=== PATIENT | female | born 1950 | race Caucasian/White ===

== ENCOUNTER 2024-05-27 18:56 | Observation (INO) ==
[2024-05-27 21:01] LABS: ABS Lymphocytes 0.4 10^3/uL (1.0-4.8); ABS Monocytes 0.4 10^3/uL (0.0-0.9); ABS Neutrophils 9.9 10^3/uL (1.5-7.6); Hemoglobin 15.8 g/dL (11.5-14.3); Lymphocyte % 3.3 %; Mean Corpuscular Hemoglobin 31.5 pg (27-33); Mean Corpuscular Hgb Conc 32.9 g/dL (31-36); Mean Corpuscular Volume 95.8 fL (80-97); Mean Platelet Volume 8.2 fL (7.5-11.2); Platelet Count 269 10^3/uL (150-450); Red Blood Count 5.02 10^6/uL (3.63-4.92); Red Cell Distribution Width 16.3 % (12-17); White Blood Count 10.7 10^3/uL (3.8-11.8)
[2024-05-27] MEDS: Lidocaine 2% JELLY 6 ML Topical TOPICAL ONE (21:21)
[2024-05-27 21:39] LABS: Albumin 3.8 g/dL (3.2-5.2); Albumin/Globulin Ratio 1.6 (1-3); C Reactive Protein 13.86 mg/L (<8.01); Calcium 9.1 mg/dL (8.6-10.3); Creatinine, Serum 0.83 mg/dL (0.51-0.95); Globulin 2.4 g/dL (2-4); Potassium 4.5 mmol/L (3.5-5.0); Total Bilirubin 0.5 mg/dL (0.2-1.0); Total Protein 6.2 g/dL (6.4-8.9)
[2024-05-27 22:14] LABS: Urine Appearance Clear; Urine Bilirubin Negative (Negative); Urine Blood Negative (Negative); Urine Color Light-Yellow; Urine Glucose Negative (Negative); Urine Ketones Negative (Negative); Urine Nitrite Negative (Negative); Urine Protein Negative (Negative); Urine Specific Gravity 1.017 (1.002-1.030); Urine Urobilinogen Negative (Negative)
[2024-05-27] MEDS: Lactated Ringers 1000 ml BAG 1,000 ML IV ONE (22:19)
[2024-05-27 22:31] LABS: Urine Bacteria Absent /HPF (Absent); Urine Red Blood Cell Trace(0-2/hpf) /HPF (0-Trace); Urine Renal Epithelial Cells Present /HPF (Absent); Urine Squamous Epithelial Cell Present /HPF (Absent); Urine White Blood Cell Trace(0-5/hpf) /HPF (0-Trace)
[2024-05-27 22:37] LABS: High Sensitivity Troponin 1 Hr 16 pg/mL (<15)
[2024-05-28] MEDS ORDERED: Sulfur Hexaflouride MICROSPHR 25 MG VIAL IV PRN (06:16)
[2024-05-28] MEDS: Enoxaparin 40 MG/0.4 ML SYR SUBCUT SCH (06:33)
[2024-05-28 17:25] LABS: Body Fluid Total Nucleated 262 /mcL
[2024-05-28 17:26] LABS: Body Fluid Appearance Cloudy; Body Fluid Color Yellow; Body Fluid Source Pleural Fluid
[2024-05-28 18:34] LABS: Body Fluid Mono 11 %; Body Fluid Other Cells 321; Body Fluid Total Cells Counted 200
[2024-05-29 06:22] LABS: Calcium 8.2 mg/dL (8.6-10.3); Creatinine, Serum 0.71 mg/dL (0.51-0.95); Potassium 4.3 mmol/L (3.5-5.0); eGFR CKD-EPI 88.1 (>60)
[2024-05-29] MEDS: Lidocaine PATCH 5% PATCH TRANSDERM SCH (12:49)
[2024-05-29 17:14] VITALS: BP 141/89
[2024-05-30 13:46] LABS: Lactate Dehydrogenase, BF 223 U/L
[2024-05-30 15:13] LABS: Albumin, BF 2.4 g/dL; Fluid Type, Albumin PLEURAL; Fluid Type, Protein, Total PLEURAL; Glucose, BF 154 mg/dL; Total Protein, BF 3.4 g/dL
== END 2024-05-29 19:08 | disposition home or self-care (01) ==
LOC: EDHOLD 18:56 → ED 18:56 → SUATTDRO 05-28 03:10 → MED 05-28 13:14
PROVIDERS: ADMIT Student in an Organized Health Care Education/Training Program; ATTEND Student in an Organized Health Care Education/Training Program

== ENCOUNTER 2024-06-02 14:25 | Observation (INO) ==
[2024-06-02 15:19] LABS: Hematocrit 45.7 % (35-45); Hemoglobin 15.3 g/dL (11.5-14.3); Mean Corpuscular Hemoglobin 31.5 pg (27-33); Mean Corpuscular Hgb Conc 33.5 g/dL (31-36); Mean Corpuscular Volume 93.9 fL (80-97); Mean Platelet Volume 8.1 fL (7.5-11.2); Platelet Count 200 10^3/uL (150-450); Red Blood Count 4.87 10^6/uL (3.63-4.92); Red Cell Distribution Width 16.5 % (12-17); White Blood Count 14.3 10^3/uL (3.8-11.8)
[2024-06-02 15:49] LABS: INR 1.06 (0.85-1.14)
[2024-06-02 15:55] LABS: ABS Lymphocytes 0.3 10^3/uL (1.0-4.8); ABS Monocytes 0.5 10^3/uL (0.0-0.9); ABS Neutrophils 13.4 10^3/uL (1.5-7.6); ABS Nucleated RBC 0.01 10^3/ul; Eosinophil % 0.1 %; Lymphocyte % 2.1 %; Nucleated Red Blood Cells % 0.1 %/100WBC (0.0-0.8)
[2024-06-02 16:20] LABS: Albumin 3.2 g/dL (3.2-5.2); Albumin/Globulin Ratio 1.4 (1-3); Calcium 8.6 mg/dL (8.6-10.3); Creatinine, Serum 0.68 mg/dL (0.51-0.95); Globulin 2.3 g/dL (2-4); Potassium 4.5 mmol/L (3.5-5.0); Total Bilirubin 0.7 mg/dL (0.2-1.0); Total Protein 5.5 g/dL (6.4-8.9); eGFR CKD-EPI 90.2 (>60)
[2024-06-02 16:46] LABS: High Sensitivity Troponin 1 Hr 7 pg/mL (<15)
[2024-06-03 06:49] LABS: INR 1.01 (0.85-1.14)
[2024-06-03 06:50] LABS: ABS Lymphocytes 0.6 10^3/uL (1.0-4.8); ABS Monocytes 0.9 10^3/uL (0.0-0.9); ABS Neutrophils 10.9 10^3/uL (1.5-7.6); Eosinophil % 0.1 %; Hematocrit 43.8 % (35-45); Hemoglobin 14.8 g/dL (11.5-14.3); Lymphocyte % 4.7 %; Mean Corpuscular Hemoglobin 31.8 pg (27-33); Mean Corpuscular Hgb Conc 33.8 g/dL (31-36); Mean Corpuscular Volume 94.2 fL (80-97); Mean Platelet Volume 8.1 fL (7.5-11.2); Platelet Count 184 10^3/uL (150-450); Red Blood Count 4.65 10^6/uL (3.63-4.92); Red Cell Distribution Width 16.2 % (12-17); White Blood Count 12.4 10^3/uL (3.8-11.8)
[2024-06-03 06:59] LABS: Calcium 8.5 mg/dL (8.6-10.3); Creatinine, Serum 0.77 mg/dL (0.51-0.95); Magnesium 1.4 mg/dL (1.9-2.7); Potassium 4.6 mmol/L (3.5-5.0); eGFR CKD-EPI 79.9 (>60)
[2024-06-03] MEDS: Magnesium Sulf 4 GM/100 ML IV 4,000 MG/100 ML BAG IVPB ONE (11:49)
[2024-06-04] MEDS ORDERED: fentaNYL 100 mcg/2 ml 50 MCG/ML VIAL IV SLOW PU ONE (12:22)
[2024-06-04] MEDS ORDERED: Naloxone 0.4 mg VIAL 0.4 mg/ml 1 ml VIAL IV PUSH PRN (12:22)
[2024-06-04] MEDS ORDERED: Midazolam 10 mg/10 ml VIAL 1 mg/ml 10 ml VIAL (10 mg) IV SLOW PU ONE (12:22)
[2024-06-04] MEDS ORDERED: Flumazenil 0.5 mg/5 ml 0.1 MG/ML 5 ml VIAL IV PRN (12:22)
[2024-06-04] MEDS ORDERED: fentaNYL 100 mcg/2 ml 50 MCG/ML VIAL ONE (13:08)
[2024-06-04] MEDS: Midazolam 2 mg/2 ml VIAL 1 mg/ml 2 ml VIAL (2 mg) ONE (16:23)
[2024-06-04] MEDS: fentaNYL 100 mcg/2 ml 50 MCG/ML VIAL ONE (16:23)
[2024-06-04] MEDS: ceFAZolin 1 GM ADVAN 1 GM ADDV.VIAL IVPB ONE (16:23)
[2024-06-04 16:30] VITALS: BP 104/57
== END 2024-06-04 17:07 | disposition home health service (06) ==
LOC: ED 14:25 → EDHOLD 14:25 → MED 23:28
PROVIDERS: ADMIT Internal Medicine; ATTEND Internal Medicine

== ENCOUNTER 2024-06-20 11:31 | Inpatient (IN) ==
[2024-06-20 11:54] LABS: Hematocrit 42.5 % (35-45); Hemoglobin 14.1 g/dL (11.5-14.3); Mean Corpuscular Hemoglobin 31.1 pg (27-33); Mean Corpuscular Hgb Conc 33.2 g/dL (31-36); Mean Corpuscular Volume 93.5 fL (80-97); Mean Platelet Volume 7.3 fL (7.5-11.2); Platelet Count 285 10^3/uL (150-450); Red Blood Count 4.54 10^6/uL (3.63-4.92); Red Cell Distribution Width 15.7 % (12-17); White Blood Count 14.5 10^3/uL (3.8-11.8)
[2024-06-20 11:59] LABS: INR 1.05 (0.85-1.14)
[2024-06-20 12:34] LABS: Albumin/Globulin Ratio 1.4 (1-3); Calcium 8.3 mg/dL (8.6-10.3); Creatinine, Serum 0.57 mg/dL (0.51-0.95); Globulin 2.2 g/dL (2-4); Potassium 4.8 mmol/L (3.5-5.0); Total Bilirubin 0.5 mg/dL (0.2-1.0); Total Protein 5.2 g/dL (6.4-8.9); eGFR CKD-EPI 94.1 (>60)
[2024-06-20 12:41] LABS: ABS Basophils 0.1 10^3/uL (0.0-0.1); ABS Lymphocytes 0.2 10^3/uL (1.0-4.8); ABS Monocytes 0.3 10^3/uL (0.0-0.9); ABS Neutrophils 13.9 10^3/uL (1.5-7.6); Lymphocyte % 1.3 %
[2024-06-20 13:16] LABS: Venous Bicarbonate HCO3 28.4 mmol/L (24-28)
[2024-06-20 13:18] LABS: High Sensitivity Troponin 1 Hr 14 pg/mL (<15)
[2024-06-20] MEDS: Iohexol 350 (CONTRAST) 500 ML MDV IV ONE (13:28)
[2024-06-20 13:29] LABS: C Reactive Protein 26.03 mg/L (<8.01)
[2024-06-20] MEDS: Albuterol/Ipratropium NEB.SOL (2.5/0.5 MG) 3 ML NEB.SOLN INH ONE (13:31)
[2024-06-20] MEDS: Cefepime 2 GM in Dextrose 2 GM/50 ML BAG IV ONE (14:12)
[2024-06-20] MEDS: DOXYcycline 100 MG in NS 0.9% 250 ml 250 ML IVPB ONE (14:52)
[2024-06-20] MEDS: Heparin 5000 UNITS/ML 1 mL VIAL IV SCH (15:14)
[2024-06-20] MEDS: Heparin DRIP 25,000 UNITS BAG 25,000 UNITS/250 ML BAG IV SCH (15:15)
[2024-06-20 16:04] LABS: Creatinine, Serum 0.62 mg/dL (0.51-0.95); eGFR CKD-EPI 92.2 (>60)
[2024-06-20] MEDS: cefTRIAXone 1 gm/50 mL D5W 1 GM/50 ML BAG IV SCH (18:01)
[2024-06-20] MEDS: Azithromycin 500 mg/250 ml NS 500 MG/250 ML BAG IVPB SCH (19:12)
[2024-06-21] MEDS ORDERED: Morphine 2 MG/ML SYRINGE IV PRN (00:50)
[2024-06-21 04:33] LABS: Urine Appearance Clear; Urine Bilirubin Negative (Negative); Urine Blood Negative (Negative); Urine Color Light-Yellow; Urine Glucose Negative (Negative); Urine Ketones Negative (Negative); Urine Nitrite Negative (Negative); Urine Protein Negative (Negative); Urine Specific Gravity 1.037 (1.002-1.030); Urine Urobilinogen Negative (Negative); Urine pH 6.5 (5.0-8.0)
[2024-06-21 06:00] LABS: Hematocrit 39.4 % (35-45); Hemoglobin 13.3 g/dL (11.5-14.3); Mean Corpuscular Hgb Conc 33.8 g/dL (31-36); Mean Corpuscular Volume 94.6 fL (80-97); Mean Platelet Volume 7.7 fL (7.5-11.2); Platelet Count 275 10^3/uL (150-450); Red Blood Count 4.17 10^6/uL (3.63-4.92); Red Cell Distribution Width 15.7 % (12-17); White Blood Count 13.3 10^3/uL (3.8-11.8)
[2024-06-21 07:07] LABS: Creatinine, Serum 0.6 mg/dL (0.51-0.95); Magnesium 1.3 mg/dL (1.9-2.7); Potassium 4.1 mmol/L (3.5-5.0)
[2024-06-21 08:06] LABS: ABS Lymphocytes 0.3 10^3/uL (1.0-4.8); Lymphocyte % 2.5 %
[2024-06-21] MEDS: Magnesium Sulfate 2 gm BAG 2 GM/50 ML BAG IVPB SCH (09:31)
[2024-06-21] MEDS: Timolol 0.5% OPTH.SOL BTL BOTH EYES SCH (09:33)
[2024-06-21] MEDS ORDERED: Sulfur Hexaflouride MICROSPHR 25 MG VIAL IV PRN (10:08)
[2024-06-21] MEDS ORDERED: Metoprolol Tartrate 5 mg VIAL 5 ml VIAL (1 mg/ml) IV PRN (10:08)
[2024-06-21] MEDS: Metoprolol Tartrate 5 mg VIAL 5 ml VIAL (1 mg/ml) IV PRN (10:55)
[2024-06-21] MEDS ORDERED: PTO:Timolol 0.5% OPTH.SOL BTL BOTH EYES SCH (19:52)
[2024-06-21] MEDS: PTO:Timolol 0.5% OPTH.SOL BTL BOTH EYES SCH (22:57)
[2024-06-22 05:08] LABS: Hematocrit 37.8 % (35-45); Hemoglobin 12.8 g/dL (11.5-14.3); Mean Corpuscular Hemoglobin 31.9 pg (27-33); Mean Corpuscular Hgb Conc 33.9 g/dL (31-36); Mean Corpuscular Volume 94.1 fL (80-97); Mean Platelet Volume 7.8 fL (7.5-11.2); Platelet Count 270 10^3/uL (150-450); Red Blood Count 4.01 10^6/uL (3.63-4.92); Red Cell Distribution Width 15.5 % (12-17); White Blood Count 13.9 10^3/uL (3.8-11.8)
[2024-06-22 06:02] LABS: Calcium 7.7 mg/dL (8.6-10.3); Creatinine, Serum 0.58 mg/dL (0.51-0.95); Magnesium 1.7 mg/dL (1.9-2.7); Potassium 4.3 mmol/L (3.5-5.0); eGFR CKD-EPI 93.7 (>60)
[2024-06-22 06:59] LABS: ABS Basophils 0.1 10^3/uL (0.0-0.1); ABS Lymphocytes 0.2 10^3/uL (1.0-4.8); ABS Monocytes 0.8 10^3/uL (0.0-0.9); ABS Neutrophils 12.7 10^3/uL (1.5-7.6); Lymphocyte % 1.7 %
[2024-06-22] MEDS: Magnesium Sulfate 2 gm BAG 2 GM/50 ML BAG IVPB ONE (09:32)
[2024-06-22] MEDS: Al Hydrox/Mg Hydrox/Simet LIQ 30 ML UDC PO ONE (16:05)
[2024-06-23 06:48] LABS: Hematocrit 39.4 % (35-45); Hemoglobin 13.3 g/dL (11.5-14.3); Mean Corpuscular Hemoglobin 31.7 pg (27-33); Mean Corpuscular Hgb Conc 33.7 g/dL (31-36); Mean Corpuscular Volume 94.1 fL (80-97); Mean Platelet Volume 7.8 fL (7.5-11.2); Platelet Count 287 10^3/uL (150-450); Red Blood Count 4.19 10^6/uL (3.63-4.92); Red Cell Distribution Width 15.5 % (12-17); White Blood Count 14.4 10^3/uL (3.8-11.8)
[2024-06-23 07:13] LABS: ABS Basophils 0.1 10^3/uL (0.0-0.1); ABS Lymphocytes 0.3 10^3/uL (1.0-4.8); ABS Monocytes 0.8 10^3/uL (0.0-0.9); ABS Neutrophils 13.2 10^3/uL (1.5-7.6); Lymphocyte % 2.3 %
[2024-06-23 07:33] LABS: Creatinine, Serum 0.57 mg/dL (0.51-0.95); Potassium 4.7 mmol/L (3.5-5.0); eGFR CKD-EPI 94.1 (>60)
[2024-06-23] MEDS: Sulfamethox/Trimethoprim DS TAB 800/160 mg PO SCH (09:50)
[2024-06-23] MEDS: Morphine ORAL CONCENTRATE 5 MG/0.25 ML ORAL.SYRIN PO PRN (21:32)
[2024-06-24] MEDS: Albuterol/Ipratropium NEB.SOL (2.5/0.5 MG) 3 ML NEB.SOLN INH PRN (10:02)
[2024-06-24] MEDS: Furosemide 20 mg/2 ml IV VIAL IV SLOW PU ONE (12:48)
[2024-06-25 09:06] LABS: Hemoglobin 12.9 g/dL (11.5-14.3); Mean Corpuscular Hemoglobin 31.2 pg (27-33); Mean Corpuscular Hgb Conc 33.1 g/dL (31-36); Mean Corpuscular Volume 94.3 fL (80-97); Platelet Count 280 10^3/uL (150-450); Red Blood Count 4.14 10^6/uL (3.63-4.92); Red Cell Distribution Width 15.4 % (12-17); White Blood Count 15.8 10^3/uL (3.8-11.8)
[2024-06-25 09:56] LABS: ABS Basophils 0.2 10^3/uL (0.0-0.1); ABS Lymphocytes 0.3 10^3/uL (1.0-4.8); ABS Monocytes 0.8 10^3/uL (0.0-0.9); ABS Neutrophils 14.5 10^3/uL (1.5-7.6); ABS Nucleated RBC 0.01 10^3/ul; Eosinophil % 0.1 %; Lymphocyte % 2.1 %
[2024-06-25 10:16] LABS: Calcium 8.1 mg/dL (8.6-10.3); Creatinine, Serum 0.6 mg/dL (0.51-0.95); Magnesium 1.3 mg/dL (1.9-2.7); Potassium 4.2 mmol/L (3.5-5.0)
[2024-06-25] MEDS: Furosemide 20 mg/2 ml IV VIAL IV SLOW PU ONE (11:19)
[2024-06-25] MEDS: Magnesium Sulf 4 GM/100 ML IV 4,000 MG/100 ML BAG IVPB ONE (11:19)
[2024-06-25] MEDS ORDERED: Albuterol/Ipratropium NEB.SOL (2.5/0.5 MG) 3 ML NEB.SOLN INH SCH (19:00)
[2024-06-25] MEDS: Albuterol/Ipratropium NEB.SOL (2.5/0.5 MG) 3 ML NEB.SOLN INH SCH (22:44)
[2024-06-26 06:16] LABS: Calcium 7.9 mg/dL (8.6-10.3); Creatinine, Serum 0.61 mg/dL (0.51-0.95); Magnesium 1.8 mg/dL (1.9-2.7); Potassium 4.5 mmol/L (3.5-5.0); eGFR CKD-EPI 92.6 (>60)
[2024-06-26] MEDS: Magnesium Sulfate 2 gm BAG 2 GM/50 ML BAG IVPB ONE (08:14)
[2024-06-26] MEDS: NS 0.9% 1000 ml BAG 500 ML IV SCH (08:16)
[2024-06-26 18:13] LABS: Calcium 7.6 mg/dL (8.6-10.3); Creatinine, Serum 0.59 mg/dL (0.51-0.95); Potassium 4.3 mmol/L (3.5-5.0); eGFR CKD-EPI 93.3 (>60)
[2024-06-27 07:28] LABS: Calcium 7.9 mg/dL (8.6-10.3); Creatinine, Serum 0.58 mg/dL (0.51-0.95); Magnesium 1.7 mg/dL (1.9-2.7); Potassium 4.4 mmol/L (3.5-5.0); eGFR CKD-EPI 93.7 (>60)
[2024-06-27 09:39] VITALS: BP 112/81
[2024-06-27] MEDS: Magnesium Sulfate 2 gm BAG 2 GM/50 ML BAG IVPB ONE (10:49)
== END 2024-06-27 14:00 | DRG 871 ==
LOC: EDHOLD 11:31 → ED 11:31 → MEDTELE 20:38 → SUATTDRO 06-21 12:28 → MED 06-25 00:55
PROVIDERS: ADMIT Internal Medicine; ATTEND Student in an Organized Health Care Education/Training Program

== ENCOUNTER 2024-06-28 12:23 | Inpatient (IN) ==
[2024-06-28 13:12] LABS: Hematocrit 39.5 % (35-45); Hemoglobin 13.2 g/dL (11.5-14.3); Mean Corpuscular Hemoglobin 31.4 pg (27-33); Mean Corpuscular Hgb Conc 33.3 g/dL (31-36); Mean Corpuscular Volume 94.1 fL (80-97); Mean Platelet Volume 7.8 fL (7.5-11.2); Platelet Count 275 10^3/uL (150-450); Red Cell Distribution Width 15.6 % (12-17); White Blood Count 18.4 10^3/uL (3.8-11.8)
[2024-06-28] MEDS: Albuterol/Ipratropium NEB.SOL (2.5/0.5 MG) 3 ML NEB.SOLN INH ONE ×2 (13:39→21:22)
[2024-06-28 13:41] LABS: ABS Basophils 0.1 10^3/uL (0.0-0.1); ABS Lymphocytes 0.3 10^3/uL (1.0-4.8); ABS Neutrophils 17.9 10^3/uL (1.5-7.6); Eosinophil % 0.2 %; Lymphocyte % 1.7 %
[2024-06-28 13:47] LABS: Urine Appearance Clear; Urine Bilirubin Negative (Negative); Urine Blood Negative (Negative); Urine Color Light-Yellow; Urine Glucose Negative (Negative); Urine Ketones Negative (Negative); Urine Nitrite Negative (Negative); Urine Protein Negative (Negative); Urine Specific Gravity 1.017 (1.002-1.030); Urine Urobilinogen Negative (Negative); Urine pH 6.5 (5.0-8.0)
[2024-06-28 13:48] LABS: Albumin 2.6 g/dL (3.2-5.2); Albumin/Globulin Ratio 1.5 (1-3); C Reactive Protein 11.97 mg/L (<8.01); Calcium 7.9 mg/dL (8.6-10.3); Creatinine, Serum 0.59 mg/dL (0.51-0.95); Globulin 1.7 g/dL (2-4); Magnesium 1.5 mg/dL (1.9-2.7); Total Bilirubin 0.4 mg/dL (0.2-1.0); Total Protein 4.3 g/dL (6.4-8.9); eGFR CKD-EPI 93.3 (>60)
[2024-06-28] MEDS: Morphine ORAL CONCENTRATE 5 MG/0.25 ML ORAL.SYRIN PO ONE (13:57)
[2024-06-28] MEDS ORDERED: Metoprolol Tartrate 5 mg VIAL 5 ml VIAL (1 mg/ml) ONE (14:08)
[2024-06-28 14:10] LABS: Potassium 2.9 mmol/L (3.5-5.0)
[2024-06-28] MEDS: Metoprolol Tartrate 5 mg VIAL 5 ml VIAL (1 mg/ml) IV ONE (14:13)
[2024-06-28 14:33] LABS: High Sensitivity Troponin 1 Hr 20 pg/mL (<15)
[2024-06-28] MEDS: Magnesium Sulfate 2 gm BAG 2 GM/50 ML BAG IVPB ONE (17:00)
[2024-06-28] MEDS: Potassium Chlor 20 meq TAB.ER PO ONE ×2 (17:00→20:59)
[2024-06-28 18:56] LABS: Calcium 6.4 mg/dL (8.6-10.3); Creatinine, Serum 0.43 mg/dL (0.51-0.95); Magnesium 2.3 mg/dL (1.9-2.7); Potassium 3.8 mmol/L (3.5-5.0); eGFR CKD-EPI 100.7 (>60)
[2024-06-28 19:23] LABS: Osmolality Serum 278 mOsm/kg (275-295)
[2024-06-28] MEDS: Morphine ORAL CONCENTRATE 5 MG/0.25 ML ORAL.SYRIN PO PRN (19:46)
[2024-06-28] MEDS: Calcium Gluconate 2 GM in NS 0.9% 100 ml BAG 100 ML IVPB ONE (20:53)
[2024-06-28] MEDS: Mometasone/Formoter 100/5 MDI INH SCH (21:22)
[2024-06-28] MEDS: Potassium Chloride LIQUID 20 MEQ/15 ML LIQUID PO ONE (21:40)
[2024-06-29] MEDS: Albuterol/Ipratropium NEB.SOL (2.5/0.5 MG) 3 ML NEB.SOLN INH PRN (03:08)
[2024-06-29 08:31] LABS: Calcium 8.2 mg/dL (8.6-10.3); Creatinine, Serum 0.53 mg/dL (0.51-0.95); Magnesium 1.6 mg/dL (1.9-2.7); Potassium 4.9 mmol/L (3.5-5.0); eGFR CKD-EPI 95.8 (>60)
[2024-06-29 08:47] LABS: Hematocrit 39.6 % (35-45); Mean Corpuscular Hemoglobin 30.9 pg (27-33); Mean Corpuscular Hgb Conc 32.9 g/dL (31-36); Mean Platelet Volume 8.1 fL (7.5-11.2); Platelet Count 274 10^3/uL (150-450); Red Blood Count 4.21 10^6/uL (3.63-4.92); Red Cell Distribution Width 15.9 % (12-17); White Blood Count 19.8 10^3/uL (3.8-11.8)
[2024-06-29 09:32] LABS: ABS Lymphocytes 0.2 10^3/uL (1.0-4.8); ABS Monocytes 0.6 10^3/uL (0.0-0.9); ABS Neutrophils 18.9 10^3/uL (1.5-7.6); Lymphocyte % 1.2 %; RBC Morphology Normal (Normal)
[2024-06-29] MEDS: Timolol 0.5% OPTH.SOL BTL BOTH EYES SCH ×2 (09:52→21:40)
[2024-06-29] MEDS: Magnesium Sulfate 2 gm BAG 2 GM/50 ML BAG IVPB ONE (15:36)
[2024-06-29] MEDS: Morphine ORAL CONCENTRATE 5 MG/0.25 ML ORAL.SYRIN PO ONE (16:45)
[2024-06-30 06:40] LABS: Hematocrit 37.9 % (35-45); Hemoglobin 12.6 g/dL (11.5-14.3); Mean Corpuscular Hemoglobin 31.2 pg (27-33); Mean Corpuscular Hgb Conc 33.1 g/dL (31-36); Mean Corpuscular Volume 94.2 fL (80-97); Mean Platelet Volume 7.9 fL (7.5-11.2); Platelet Count 256 10^3/uL (150-450); Red Blood Count 4.03 10^6/uL (3.63-4.92); Red Cell Distribution Width 15.3 % (12-17); White Blood Count 19.9 10^3/uL (3.8-11.8)
[2024-06-30 07:28] LABS: Calcium 7.8 mg/dL (8.6-10.3); Creatinine, Serum 0.55 mg/dL (0.51-0.95); Magnesium 1.7 mg/dL (1.9-2.7); Potassium 4.8 mmol/L (3.5-5.0); eGFR CKD-EPI 94.9 (>60)
[2024-06-30] MEDS: Magnesium Sulf 4 GM/100 ML IV 4,000 MG/100 ML BAG IVPB ONE (09:14)
[2024-06-30] MEDS: Sulfamethox/Trimethoprim DS TAB 800/160 mg PO SCH (09:14)
[2024-06-30] MEDS: Morphine ORAL CONCENTRATE 5 MG/0.25 ML ORAL.SYRIN PO ONE (10:51)
[2024-06-30] MEDS ORDERED: Calcium Gluconate 1 GM/10 ML VIAL (in Pyxis) IV PUSH ONE (11:58)
[2024-06-30] MEDS: CALCIUM GLUCONATE 1GM/50ML NS BAG IV SCH (13:17)
[2024-06-30] MEDS: Furosemide 20 mg/2 ml IV VIAL IV SLOW PU ONE (15:41)
[2024-06-30] MEDS ORDERED: Nystatin TOP POWDER 15 GM BTL TOPICAL SCH (23:30)
[2024-07-01] MEDS: Metoprolol Tartrate 5 mg VIAL 5 ml VIAL (1 mg/ml) IV PRN (05:47)
[2024-07-01 07:33] LABS: Hematocrit 39.9 % (35-45); Hemoglobin 13.2 g/dL (11.5-14.3); Mean Corpuscular Hemoglobin 31.5 pg (27-33); Mean Corpuscular Hgb Conc 33.2 g/dL (31-36); Mean Platelet Volume 7.6 fL (7.5-11.2); Platelet Count 259 10^3/uL (150-450); Red Cell Distribution Width 15.4 % (12-17); White Blood Count 21.2 10^3/uL (3.8-11.8)
[2024-07-01 07:51] LABS: Calcium 8.1 mg/dL (8.6-10.3); Creatinine, Serum 0.59 mg/dL (0.51-0.95); Magnesium 1.8 mg/dL (1.9-2.7); Potassium 5.2 mmol/L (3.5-5.0); eGFR CKD-EPI 93.3 (>60)
[2024-07-01] MEDS: Magnesium Sulfate 2 gm BAG 2 GM/50 ML BAG IVPB ONE (09:01)
[2024-07-01 09:04] LABS: ABS Basophils 0.1 10^3/uL (0.0-0.1); ABS Lymphocytes 0.3 10^3/uL (1.0-4.8); ABS Neutrophils 19.8 10^3/uL (1.5-7.6); Eosinophil % 0.1 %; Lymphocyte % 1.5 %
[2024-07-01 12:33] LABS: C Reactive Protein 14.57 mg/L (<8.01)
[2024-07-01 12:36] LABS: PO2 Arterial 121 mmHg (80-100)
[2024-07-01 12:38] LABS: PCO2 Arterial 75 mmHg (35-45)
[2024-07-01] MEDS ORDERED: Vancomycin 1,000 MG in NS 0.9% 250 ml 250 ML IVPB ONE (12:53)
[2024-07-01] MEDS ORDERED: Vancomycin per Pharmacy 1 EA NOTE FOLLOW UP SCH (13:00)
[2024-07-01] MEDS: cefTRIAXone 1 gm/50 mL D5W 1 GM/50 ML BAG IV SCH (15:04)
[2024-07-01 15:11] LABS: PCO2 Arterial 67 mmHg (35-45); PO2 Arterial 86 mmHg (80-100)
[2024-07-01] MEDS: Vancomycin 1,250 MG in NS 0.9% 250 ml 250 ML IVPB ONE (15:44)
[2024-07-01] MEDS: Albuterol/Ipratropium NEB.SOL (2.5/0.5 MG) 3 ML NEB.SOLN INH SCH (16:06)
[2024-07-01] MEDS: Azithromycin 500 mg/250 ml NS 500 MG/250 ML BAG IVPB ONE (17:43)
[2024-07-02] MEDS ORDERED: Vancomycin 1000 MG in NS 0.9% 250 ML IVPB SCH
[2024-07-02 03:26] LABS: PCO2 Arterial 59 mmHg (35-45); PO2 Arterial 127 mmHg (80-100)
[2024-07-02] MEDS: Furosemide 20 mg/2 ml IV VIAL IV ONE (03:44)
[2024-07-02 04:22] LABS: Albumin 2.7 g/dL (3.2-5.2); Albumin/Globulin Ratio 1.6 (1-3); Creatinine, Serum 0.61 mg/dL (0.51-0.95); Globulin 1.7 g/dL (2-4); Magnesium 1.7 mg/dL (1.9-2.7); Potassium 5.1 mmol/L (3.5-5.0); Total Bilirubin 0.4 mg/dL (0.2-1.0); Total Protein 4.4 g/dL (6.4-8.9); eGFR CKD-EPI 92.6 (>60)
[2024-07-02 06:13] LABS: INR 1.28 (0.85-1.14)
[2024-07-02 07:10] LABS: Hematocrit 39.7 % (35-45); Hemoglobin 13.1 g/dL (11.5-14.3); Mean Corpuscular Hemoglobin 31.4 pg (27-33); Mean Corpuscular Volume 95.4 fL (80-97); Mean Platelet Volume 8.3 fL (7.5-11.2); Platelet Count 237 10^3/uL (150-450); Red Blood Count 4.17 10^6/uL (3.63-4.92); Red Cell Distribution Width 15.5 % (12-17)
[2024-07-02 07:16] LABS: ABS Basophils 0.1 10^3/uL (0.0-0.1); ABS Lymphocytes 0.3 10^3/uL (1.0-4.8); ABS Monocytes 0.9 10^3/uL (0.0-0.9); ABS Neutrophils 17.7 10^3/uL (1.5-7.6); Eosinophil % 0.1 %; Lymphocyte % 1.4 %
[2024-07-02 07:17] LABS: Potassium 5.2 mmol/L (3.5-5.0)
[2024-07-02 07:18] LABS: Albumin 2.8 g/dL (3.2-5.2); Albumin/Globulin Ratio 1.6 (1-3); Calcium 8.3 mg/dL (8.6-10.3); Creatinine, Serum 0.64 mg/dL (0.51-0.95); Globulin 1.8 g/dL (2-4); Magnesium 1.7 mg/dL (1.9-2.7); Total Bilirubin 0.4 mg/dL (0.2-1.0); Total Protein 4.6 g/dL (6.4-8.9); eGFR CKD-EPI 91.5 (>60)
[2024-07-02] MEDS: Magnesium Sulfate 2 gm BAG 2 GM/50 ML BAG IVPB ONE (09:47)
[2024-07-02] MEDS: Iohexol 350 (CONTRAST) 500 ML MDV IV ONE (14:51)
[2024-07-02] MEDS: Azithromycin 250 MG in NS 0.9% 250 ml 250 ML IVPB SCH (17:23)
[2024-07-03 03:55] LABS: Hematocrit 37.2 % (35-45); Hemoglobin 12.3 g/dL (11.5-14.3); Mean Corpuscular Hemoglobin 31.4 pg (27-33); Mean Corpuscular Hgb Conc 33.1 g/dL (31-36); Mean Corpuscular Volume 94.9 fL (80-97); Mean Platelet Volume 7.8 fL (7.5-11.2); Platelet Count 224 10^3/uL (150-450); Red Blood Count 3.92 10^6/uL (3.63-4.92); Red Cell Distribution Width 15.5 % (12-17); White Blood Count 18.4 10^3/uL (3.8-11.8)
[2024-07-03 04:46] LABS: Calcium 7.9 mg/dL (8.6-10.3); Creatinine, Serum 0.55 mg/dL (0.51-0.95); Magnesium 1.9 mg/dL (1.9-2.7); eGFR CKD-EPI 94.9 (>60)
[2024-07-03 05:48] LABS: ABS Basophils 0.1 10^3/uL (0.0-0.1); ABS Lymphocytes 0.2 10^3/uL (1.0-4.8); ABS Monocytes 0.9 10^3/uL (0.0-0.9); ABS Neutrophils 17.2 10^3/uL (1.5-7.6); Lymphocyte % 1.1 %
[2024-07-03] MEDS: Albuterol/Ipratropium NEB.SOL (2.5/0.5 MG) 3 ML NEB.SOLN INH PRN (06:40)
[2024-07-03 11:09] VITALS: BP 115/70
[2024-07-03] MEDS ORDERED: Vancomycin Trough Check NOTE FOLLOW UP ONE (11:30)
[2024-07-03] MEDS: LORazepam 2 mg VIAL 1 ml IV PUSH SCH (13:42)
[2024-07-03] MEDS: Morphine 10 MG/ML VIAL (1 ml) IV SCH (13:43)
[2024-07-03] MEDS: Morphine 10 MG/ML VIAL (1 ml) IV PRN (13:57)
[2024-07-03] MEDS: LORazepam 2 mg VIAL 1 ml IV PUSH PRN (13:57)
== END 2024-07-03 14:15 | disposition expired | DRG 189 ==
LOC: EDHOLD 12:23 → ED 12:23 → MEDTELE 12:23 → SUATTDRO 18:00 → MEDTELE 23:29 → ICU 07-01 14:10
PROVIDERS: ADMIT Student in an Organized Health Care Education/Training Program; ATTEND Internal Medicine